=== PATIENT | male | born 1950 | race Caucasian/White ===

== ENCOUNTER 2016-09-12 21:20 | Emergency (ER) | payer OTHER | END 2016-09-13 03:20 | disposition home or self-care (01) | LOC: ER1 21:20 | DX: J20.9 Acute bronchitis, unspecified (principal); F17.200 Nicotine dependence, unspecified, uncomplicated; I10 Essential (primary) hypertension; E78.5 Hyperlipidemia, unspecified; Z79.899 Other long term (current) drug therapy | CPT/HCPCS: 71020; 94664; 99284 ==

== ENCOUNTER 2016-09-20 13:26 | Emergency (ER) | payer OTHER ==
[2016-09-20 14:57] LABS: HEMOGLOBIN 12.3 gm/dl (14.0-17.5); RED BLOOD COUNT 4.34 M/UL (4.20-5.50); WHITE BLOOD COUNT 16.2 K/UL (4.5-11.0)
[2016-09-20 15:24] LABS: BUN/CREATININE RATIO 19 (0-10)
== END 2016-09-20 21:00 | disposition home or self-care (01) ==
LOC: ER1 13:26
PROVIDERS: Emergency Medicine
DX: R55 Syncope and collapse (principal); J18.9 Pneumonia, unspecified organism; I10 Essential (primary) hypertension; E78.5 Hyperlipidemia, unspecified; E11.9 Type 2 diabetes mellitus without complications
CPT/HCPCS: 36415; 70450; 71010; 72125; 80053; 81001; 83690; 84484; 85025; 85379; 85610; 85730; 87086; 93005; 93880; 94640; 94664; 99285; J7050; Q9963